=== PATIENT | male | born 1995 | race African-American/Black ===

== ENCOUNTER 2017-02-26 11:18 | Emergency (ER) | payer MEDICAID ==
[~2017-02-26] VITALS: Ht 177.8 cm; Wt 76.0 kg
[2017-02-26] MEDS ORDERED: [UNRECOGNIZED DRUG - REMARK] (11:22)
[2017-02-26] MEDS ORDERED: OXYC-159 PO (11:22)
[2017-02-26] MEDS ORDERED: KETOROLAC 60MG/2ML VIAL IM ONE (11:45)
[2017-02-26 11:56] VITALS: BP 130/75
[2017-02-26] MEDS: CEFTRIAXONE SODIUM 500 MG/VIAL IM ONE ×2 (12:00→12:29)
== END 2017-02-26 12:31 | disposition home or self-care (01) ==
LOC: ER 11:47
DX: S81.802A Unspecified open wound, left lower leg, initial encounter (principal); Z79.899 Other long term (current) drug therapy; W34.00XA Accidental discharge from unspecified firearms or gun, initial encounter; Y93.89 Activity, other specified; Y92.9 Unspecified place or not applicable; Y99.8 Other external cause status
CPT/HCPCS: 96372; 99284; J0696; J1885